=== PATIENT | female | born 1965 | race Caucasian/White ===

== ENCOUNTER 2017-12-31 08:15 | Outpatient (REF) | payer MEDICAID, SELFPAY ==
[2017-12-31 20:36] LABS: Prothrombin Time 19.5 sec (9.3-10.8)
[2017-12-31 21:01] LABS: Anion Gap 10.5 mmol/L (3-11); BUN 13 mg/dL (7-18); CO2 26.5 mmol/L (21.0-32.0); CREATININE 0.79 mg/dL (0.55-1.02); Chloride 106 mmol/L (98-107); Cholesterol 158 mg/dL (50-200); Glucose 130 mg/dL (70-100); HDL Cholesterol 50 mg/dL (40-60); LDL CHOLESTEROL 94 mg/dL (<100); Potassium 4.1 mmol/L (3.5-5.1); Sodium 143 mmol/L (136-145); Triglyceride 100 mg/dL (30-150)
== END 2017-12-31 08:35 ==
LOC: NCHCN 08:15
PROVIDERS: PCP Physician Assistant Medical; Visit Provider Specialist/Technologist Athletic Trainer
DX: E11.65 Type 2 diabetes mellitus with hyperglycemia (principal); J32.9 Chronic sinusitis, unspecified; R49.1 Aphonia; I63.9 Cerebral infarction, unspecified; Z79.01 Long term (current) use of anticoagulants
CPT/HCPCS: 80048; 80061; 83721; 85610

== ENCOUNTER 2018-04-17 18:31 | Emergency (ER) | payer MEDICAID, SELFPAY ==
[2018-04-17 18:35] VITALS: BP 169/70; PULSE 85; RESP 16; TEMP 36.2; O2SAT 98
--- NOTE | 2018-04-17 18:53 | W.ED.GENAD ---
Discharge Plan Disposition Patient Disposition: OTHER Condition: Stable Discharge Details Chief Complaint: RashLesion Clinical Impression: Left before treatment completed, Abdominal pain Primary Care Provider: Leandro Bah V ED Provider: Beulah Raman Home Meds and New Rx's Prescriptions: No Action atorvastatin [Lipitor] 20 MG tablet 20 mg PO HS RF: 0 gabapentin 300 MG capsule 300 mg PO HS Qty: 30 RF: 6 warfarin 2.5 MG tablet 5 mg PO DAILY RF: 0 sertraline 50 MG tablet 50 mg PO DAILY RF: 0 calcium carb-mag ox-zinc sulf 1 EACH tablet 400 mg PO DAILY RF: 0 lorazepam 0.5 MG tablet 1 tab PO PRN PRNRF: 0 metformin [Glucophage] 1,000 MG tablet 1,000 mg PO BID@0800,1700 RF: 0 Discharge Data Discharge Date/Time-TO BE ENTERED AT DEPARTURE: 04/17/18 23:36 Discharge Physician: Beulah Raman Medical Decision Making 52-year-old female with complaint of left-sided abdominal pain for the past week, worse tonight with a sensation of a hard lump. No fever, nausea, vomiting, diarrhea, urinary symptoms and has been eating and drinking normally. Blood pressure mildly hypertensive, otherwise vitals within normal limits. Patient's abdomen is soft and very minimally tender to deep palpation in the left mid abdomen. No abdominal wall defect, or bulge noted. No change in abdominal exam upon standing. Differential diagnosis includes hernia, bowel obstruction, diverticulitis. We will place an IV, bolus IV fluids, labs, urinalysis, CT abdomen and pelvis. 1940 --shortly after patient evaluation, it appears that she had eloped from the ED. It was explained to patient the plan and she was agreeable after my evaluation but it appears she may have left before any treatment. HPI General Mode of arrival: ambulatory. Date/Time Provider Initiated Documentation: 04/17/18 18:51. Limitations to Documentation: no limitations. Information obtained by: patient. HPI Narrative: Patient is a 52-year-old female with history of asthma, CVA, diabetes, seizure, on Coumadin her previous CVA and blood clotting disorder of which she does not know the name, for left-sided abdominal pain for the past week. Patient states the pain feels constantly tender, but was worse tonight when she noted a hardness to her left side of her abdomen. Patient states she felt it went from hard to move she . She states she awoke this when laying down and upon standing. Patient denies any significant pain at present, and states it just feels tender . Patient denies any fever, nausea, vomiting, diarrhea. She states she has been eating and drinking normally. She states her last bowel movement was this morning and she denies any rectal bleeding. Related Data Home Medications Medication Instructions Recorded Confirmed atorvastatin [Lipitor] 20 mg PO HS 10/18/13 04/17/18 gabapentin 300 mg PO HS #30 tab-cap 11/30/13 04/17/18 warfarin 5 mg PO DAILY tab-cap 01/25/14 04/17/18 lorazepam 1 tab PO PRN PRN 05/13/16 04/17/18 metformin [Glucophage] 1,000 mg PO BID@0800,1700 05/13/16 04/17/18 calcium carb-mag ox-zinc sulf 400 mg PO DAILY 09/09/16 04/17/18 sertraline 50 mg PO DAILY tab-cap 09/09/16 04/17/18 Allergies Allergy/AdvReac Type Severity Reaction Status Date / Time sulfamethoxazole Allergy Unknown Unverified 04/17/18 18:35 [From Bactrim] trimethoprim [From Bactrim] Allergy Unknown Unverified 04/17/18 18:35 carbamazepine [From Tegretol] Allergy Unverified 04/17/18 18:35 phenobarbital Allergy Unverified 04/17/18 18:35 phenytoin sodium Allergy Unverified 04/17/18 18:35 [From Dilantin] valproic acid Allergy Unverified 04/17/18 18:35 General Stated Complaint: RashLesion ROSALIND: 4 Review of Systems Review of Systems All systems reviewed & are unremarkable except as noted in HPI and below Constitutional Reports as per HPI, Denies chills and Denies fever(s) Eyes Denies blurry vision ENT Denies dizziness, Denies sore throat and Denies throat swelling Cardiovascular Denies chest pain and Denies dyspnea Respiratory Denies cough and Denies dyspnea Gastrointestinal Reports abdominal pain, Denies diarrhea and Denies vomiting Genitourinary Denies hematuria and Denies dysuria Musculoskeletal Denies back pain and Denies numbness Integumentary/Breasts Denies lesions and Denies rash Neurologic Denies dizziness, Denies focal weakness and Denies numbness Allergic/Immunologic Denies throat swelling [facility] Medical History Asthma (Chronic) CVA (cerebral vascular accident) (Chronic) Diabetes (Chronic) Seizure disorder (Chronic) Bronchitis Cerebrovascular accident (stroke) Personal history of malignant neoplasm Surgical History History of tonsillectomy (Chronic) Abdominal hysterectomy Appendectomy Ligation of fallopian tube Family History Mother No problems noted. Father Personal history of malignant neoplasm Other Asthma Social History Smoking/Tobacco Use Status: Current every day alcohol intake: never substance use type: does not use Exam Const General: cooperative, healthy appearing and no acute distress HENMT Head: normal to inspection Face and sinus: normal facial exam Eyes General: appearance normal, both eyes and all related structures EOM: EOM intact bilaterally Neck Neck: normal visual inspection and No submandibular swelling Lymphatic: no lymphadenopathy noted Chest Chest: normal inspection of the chest and no tenderness Resp Effort & Inspection: normal respiratory effort and able to speak in complete sentences Auscultation: clear to auscultation bilaterally Cardio Rate: regular rate Rhythm: regular rhythm GI Inspection: normal to inspection Palpation: soft, not firm, not rigid and tender (Very minimally tender to left mid abdomen.) Auscultation: normal bowel sounds Other: No abdominal wall defect, hernia or bulge noted, no change in abdomen upon standing. Skin General skin exam: no rashes or lesions noted Neuro General: alert, awake and oriented x3 Cognition: normal cognition Speech: speech normal Motor: muscle tone normal throughout Sensory Exam: no sensory deficits noted Extrem General: normal to inspection, full ROM and no edema Psych Appearance: grossly normal Mental Status: mental status grossly normal Speech and Movement: speech and movement normal Affect: normal affect Course Vital Signs Temperature 97.2 F L 04/17/18 18:35 Pulse 85 04/17/18 18:35 Respiratory Rate 16 04/17/18 18:35 Blood Pressure 169/70 H 04/17/18 18:35 Pulse Oximetry 98 04/17/18 18:35 Temperature 97.2 F L 04/17/18 18:35 Temperature Source Temporal Artery Scan 04/17/18 18:35 Pulse 85 04/17/18 18:35 Respiratory Rate 16 04/17/18 18:35 Respiratory Effort 04/17/18 18:35 Blood Pressure 169/70 H 04/17/18 18:35 Blood Pressure Position Sitting 04/17/18 18:35 Pulse Oximetry 98 04/17/18 18:35 Oxygen Delivery Method Room Air 04/17/18 18:35 Oxygen Flow Rate 0 04/17/18 18:35 Pain Level 5 04/17/18 18:35
--- NOTE | 2018-04-17 18:56 | ED.GENADUL_ITS ---
Discharge Plan Disposition Patient Disposition: OTHER Condition: Stable Discharge Details Chief Complaint: RashLesion Clinical Impression: Left before treatment completed, Abdominal pain Primary Care Provider: Leandro Bah V ED Provider: Beulah Raman Home Meds and New Rx's Prescriptions: No Action atorvastatin [Lipitor] 20 MG tablet 20 mg PO HS RF: 0 gabapentin 300 MG capsule 300 mg PO HS Qty: 30 RF: 6 warfarin 2.5 MG tablet 5 mg PO DAILY RF: 0 sertraline 50 MG tablet 50 mg PO DAILY RF: 0 calcium carb-mag ox-zinc sulf 1 EACH tablet 400 mg PO DAILY RF: 0 lorazepam 0.5 MG tablet 1 tab PO PRN PRNRF: 0 metformin [Glucophage] 1,000 MG tablet 1,000 mg PO BID@0800,1700 RF: 0 Discharge Data Discharge Date/Time-TO BE ENTERED AT DEPARTURE: 04/17/18 23:36 Discharge Physician: Beulah Raman Medical Decision Making 52-year-old female with complaint of left-sided abdominal pain for the past week, worse tonight with a sensation of a hard lump. No fever, nausea, vomiting, diarrhea, urinary symptoms and has been eating and drinking normally. Blood pressure mildly hypertensive, otherwise vitals within normal limits. Patient's abdomen is soft and very minimally tender to deep palpation in the left mid abdomen. No abdominal wall defect, or bulge noted. No change in abdominal exam upon standing. Differential diagnosis includes hernia, bowel obstruction, diverticulitis. We will place an IV, bolus IV fluids, labs, urinalysis, CT abdomen and pelvis. 1940 --shortly after patient evaluation, it appears that she had eloped from the ED. It was explained to patient the plan and she was agreeable after my evaluation but it appears she may have left before any treatment. HPI General Mode of arrival: ambulatory . Date/Time Provider Initiated Documentation: 04/17/18 18:51 . Limitations to Documentation: no limitations . Information obtained by: patient . HPI Narrative: Patient is a 52-year-old female with history of asthma, CVA, diabetes, seizure, on Coumadin her previous CVA and blood clotting disorder of which she does not know the name, for left- sided abdominal pain for the past week. Patient states the pain feels constantly tender, but was worse tonight when she noted a hardness to her left side of her abdomen. Patient states she felt it went from hard to move she . She states she awoke this when laying down and upon standing. Patient denies any significant pain at present, and states it just feels tender . Patient denies any fever, nausea, vomiting, diarrhea. She states she has been eating and drinking normally. She states her last bowel movement was this morning and she denies any rectal bleeding. Related Data Home Medications Medication Instructions Recorded Confirmed atorvastatin [Lipitor] 20 mg PO HS 10/18/13 04/17/18 gabapentin 300 mg PO HS #30 tab-cap 11/30/13 04/17/18 warfarin 5 mg PO DAILY tab-cap 01/25/14 04/17/18 lorazepam 1 tab PO PRN PRN 05/13/16 04/17/18 metformin [Glucophage] 1,000 mg PO BID@0800,1700 05/13/16 04/17/18 calcium carb-mag ox-zinc sulf 400 mg PO DAILY 09/09/16 04/17/18 sertraline 50 mg PO DAILY tab-cap 09/09/16 04/17/18 Allergies Allergy/AdvReac Type Severity Reaction Status Date / Time sulfamethoxazole Allergy Unknown Unverified 04/17/18 18:35 [From Bactrim] trimethoprim [From Bactrim] Allergy Unknown Unverified 04/17/18 18:35 carbamazepine [From Tegretol] Allergy Unverified 04/17/18 18:35 phenobarbital Allergy Unverified 04/17/18 18:35 phenytoin sodium Allergy Unverified 04/17/18 18:35 [From Dilantin] valproic acid Allergy Unverified 04/17/18 18:35 General Stated Complaint: RashLesion ROSALIND: 4 Review of Systems Review of Systems All systems reviewed & are unremarkable except as noted in HPI and below Constitutional Reports as per HPI, Denies chills and Denies fever(s) Eyes Denies blurry vision ENT Denies dizziness, Denies sore throat and Denies throat swelling Cardiovascular Denies chest pain and Denies dyspnea Respiratory Denies cough and Denies dyspnea Gastrointestinal Reports abdominal pain, Denies diarrhea and Denies vomiting Genitourinary Denies hematuria and Denies dysuria Musculoskeletal Denies back pain and Denies numbness Integumentary/Breasts Denies lesions and Denies rash Neurologic Denies dizziness, Denies focal weakness and Denies numbness Allergic/Immunologic Denies throat swelling [facility] Medical History Asthma (Chronic) CVA (cerebral vascular accident) (Chronic) Diabetes (Chronic) Seizure disorder (Chronic) Bronchitis Cerebrovascular accident (stroke) Personal history of malignant neoplasm Surgical History History of tonsillectomy (Chronic) Abdominal hysterectomy Appendectomy Ligation of fallopian tube Family History Mother No problems noted. Father Personal history of malignant neoplasm Other Asthma Social History Smoking/Tobacco Use Status: Current every day alcohol intake: never substance use type: does not use Exam Const General: cooperative, healthy appearing and no acute distress HENMT Head: normal to inspection Face and sinus: normal facial exam Eyes General: appearance normal, both eyes and all related structures EOM: EOM intact bilaterally Neck Neck: normal visual inspection and No submandibular swelling Lymphatic: no lymphadenopathy noted Chest Chest: normal inspection of the chest and no tenderness Resp Effort & Inspection: normal respiratory effort and able to speak in complete sentences Auscultation: clear to auscultation bilaterally Cardio Rate: regular rate Rhythm: regular rhythm GI Inspection: normal to inspection Palpation: soft, not firm, not rigid and tender (Very minimally tender to left m id abdomen.) Auscultation: normal bowel sounds Other: No abdominal wall defect, hernia or bulge noted, no change in abdomen upon standing. Skin General skin exam: no rashes or lesions noted Neuro General: alert, awake and oriented x3 Cognition: normal cognition Speech: speech normal Motor: muscle tone normal throughout Sensory Exam: no sensory deficits noted Extrem General: normal to inspection, full ROM and no edema Psych Appearance: grossly normal Mental Status: mental status grossly normal Speech and Movement: speech and movement normal Affect: normal affect Course Vital Signs Temperature 97.2 F L 04/17/18 18:35 Pulse 85 04/17/18 18:35 Respiratory Rate 16 04/17/18 18:35 Blood Pressure 169/70 H 04/17/18 18:35 Pulse Oximetry 98 04/17/18 18:35 Temperature 97.2 F L 04/17/18 18:35 Temperature Source Temporal Artery Scan 04/17/18 18:35 Pulse 85 04/17/18 18:35 Respiratory Rate 16 04/17/18 18:35 Respiratory Effort 04/17/18 18:35 Blood Pressure 169/70 H 04/17/18 18:35 Blood Pressure Position Sitting 04/17/18 18:35 Pulse Oximetry 98 04/17/18 18:35 Oxygen Delivery Method Room Air 04/17/18 18:35 Oxygen Flow Rate 0 04/17/18 18:35 Pain Level 5 04/17/18 18:35
== END 2018-04-17 23:36 | disposition other institution (70) ==
LOC: ER 18:59
PROVIDERS: Emergency Provider Physician Assistant; PCP Physician Assistant Medical
DX: R10.9 Unspecified abdominal pain (principal); I10 Essential (primary) hypertension; Z53.29 Procedure and treatment not carried out because of patient's decision for other reasons
CPT/HCPCS: 80053; 99282; 85025; 85610; 85730

== ENCOUNTER 2018-06-15 01:02 | Outpatient (CLI) | payer MEDICAID, SELFPAY ==
--- NOTE | 2018-06-15 08:05 | DI.MAMMO_ITS ---
SYMPTOM/DIAGNOSIS: SCREENING, [facility], Z00.00 MAMMOGRAMS: Mammograms were interpreted according to the usual protocol including computer analysis with CAD system, tomosynthesis and C view imaging. The breast tissue is of moderate radiodensity. There is no evidence of a mass. There are no suspicious calcifications and there has been no significant interval change when compared with prior images. IMPRESSION: No evidence of malignancy, category 1. Yearly screening mammography is recommended. Breast density, Category B. SA ASSESSMENT OF FINDINGS: Negative. Category 1. Patient will receive a letter notifying them of these results. BI-RADS category B. There are scattered areas of fibroglandular density.
== END 2018-06-15 01:22 ==
PROVIDERS: PCP Physician Assistant Medical; Visit Provider Specialist/Technologist Athletic Trainer
DX: Z12.31 Encounter for screening mammogram for malignant neoplasm of breast (principal)
CPT/HCPCS: 77063; 77067

== ENCOUNTER 2018-08-29 11:06 | Emergency (ER) | payer MEDICAID, SELFPAY ==
--- NOTE | 2018-08-29 11:15 | W.ED.GENAD ---
Discharge Plan Disposition Patient Disposition: HOME Condition: Improving Discharge Details Chief Complaint: GenMedical Clinical Impression: Closed fracture dislocation of finger Primary Care Provider: Skyler Barry ED Provider: Maricruz Posada Home Meds and New Rx's Prescriptions: Continued atorvastatin [Lipitor] 20 MG tablet 20 mg PO HS RF: 0 gabapentin 300 MG capsule 300 mg PO HS Qty: 30 RF: 6 warfarin 2.5 MG tablet 5 mg PO DAILY RF: 0 sertraline 50 MG tablet 50 mg PO DAILY RF: 0 calcium carb-mag ox-zinc sulf 1 EACH tablet 400 mg PO DAILY RF: 0 lorazepam 0.5 MG tablet 1 tab PO PRN PRNRF: 0 metformin [Glucophage] 1,000 MG tablet 1,000 mg PO BID@0800,1700 RF: 0 Discharge Instructions Instructions: Finger Fracture (ED), Finger Dislocation (ED) Additional Instructions: Encourage rest, ice, elevation. Tylenol as needed for discomfort. Please continue splint until reevaluated orthopedics. Please call them Thursday to schedule follow-up appointment. If you develop altered sensation, increased pain or other new/worsening symptoms please seek care urgently once again. Referrals: Skyler Barry [Primary Care Provider] - Foster Rodríguez MD [ [facility] STAFF PHYSICIAN] - Discharge Data Discharge Date/Time-TO BE ENTERED AT DEPARTURE: 08/29/18 13:02 Medical Decision Making Patient is a 52 year old RHD female, brought in by significant other, with c/c of injury to right 5th digit. Unclear how she did this but states she was picking up a tool. Did not fall, no known trauma. Appears to have suffered a dislocation at the PIP joint. Patient is having severe pain, has not taken anything for this. No other injury, no previous injury to this finger. No opening in the skin. Neurovascularly intact. Offered digital block which patient has refused. XR reviewed by myself. Significant for dislocation of the PIP joint with associated fracture. Fracture appears to be avulsion fracture with small fragment displaced away from the joint line. XR reviewed by radiologist, no note of fracture, otherwise as above. Patient has discussed risk/benefits as well as expected procedural steps of reduction at length. She declines any analgesics, digital block. Prefers to move forward with the procedure. Finger was easily reduced with counter traction. Patient is unable to flex at the PIP or DIP joints. With passive range of motion, joint moves fluidly. Splint was immediately applied and postreduction films obtained Postreduction films show displaced fracture is noted initially. This is concerning for avulsion of the flexor tendon. The finger continues to appear hyperextended. Consulted with Dr. Rodríguez with orthopedics who advised placing the patient in a dorsal splint that will keep the MCP, PIP and DIP joints and 30 degrees of flexion. This is applied. She will follow-up with orthopedics this week for reevaluation. Patient I discussed activity she should avoid. She will keep splint on until reevaluated by orthopedics. Foam and metal splint as described by Dr. Rodríguez was applied by myself. Encouraged rest, ice, elevation. All of her questions and concerns were addressed and she is in agreement this plan. HPI General Mode of arrival: ambulatory. Date/Time Provider Initiated Documentation: 08/29/18 11:09. Limitations to Documentation: no limitations. Information obtained by: patient, family and RN notes reviewed. History of Present Illness 52 year old F presents to the emergency department with the chief complaint of right 5th digit injury, described as severe, Quality is described as aching, and is localized to the right and upper extremity. Patient reports no radiation. Patient started experiencing this minute(s) and it has been constant. No relieving factors improve symptom(s), Movement worsens symptoms . Patient notes no other symptoms.. Patient did receive the following treatments prior to arrival, none Related Data Home Medications Medication Instructions Recorded Confirmed atorvastatin [Lipitor] 20 mg PO HS 10/18/13 04/17/18 gabapentin 300 mg PO HS #30 tab-cap 11/30/13 04/17/18 warfarin 5 mg PO DAILY tab-cap 01/25/14 04/17/18 lorazepam 1 tab PO PRN PRN 05/13/16 04/17/18 metformin [Glucophage] 1,000 mg PO BID@0800,1700 05/13/16 04/17/18 calcium carb-mag ox-zinc sulf 400 mg PO DAILY 09/09/16 04/17/18 sertraline 50 mg PO DAILY tab-cap 09/09/16 04/17/18 Allergies Allergy/AdvReac Type Severity Reaction Status Date / Time sulfamethoxazole Allergy Unknown Unverified 08/29/18 11:22 [From Bactrim] trimethoprim [From Bactrim] Allergy Unknown Unverified 08/29/18 11:22 carbamazepine [From Tegretol] Allergy Unverified 08/29/18 11:22 phenobarbital Allergy Unverified 08/29/18 11:22 phenytoin sodium Allergy Unverified 08/29/18 11:22 [From Dilantin] valproic acid Allergy Unverified 08/29/18 11:22 General ROSALIND: 4 Review of Systems Constitutional Reports as per HPI, Denies chills, Denies fever(s), Denies headache(s) and Denies weakness ENT Denies headache(s) Cardiovascular Reports as per HPI Respiratory Reports as per HPI and Denies cough Musculoskeletal Reports as per HPI and Denies tingling Integumentary/Breasts Reports as per HPI, Denies rash and Denies wounds Neurologic Reports as per HPI, Denies headache(s), Denies tingling, Denies paresthesias and Denies weakness PFS Medical History Asthma (Chronic) CVA (cerebral vascular accident) (Chronic) Diabetes (Chronic) Seizure disorder (Chronic) Bronchitis Cerebrovascular accident (stroke) Personal history of malignant neoplasm Surgical History History of tonsillectomy (Chronic) Abdominal hysterectomy Appendectomy Ligation of fallopian tube Social History Smoking/Tobacco Use Status: Current every day Alcohol Intake: never Drug use: Never Substance use type: does not use Do you feel safe in your relationship?: Yes Exam Const General: cooperative, healthy appearing, comfortable, no acute distress, well developed and well groomed Nutritional Appearance: average body habitus and well nourished Orientation: alert and awake Resp Effort & Inspection: normal respiratory effort, able to speak in complete sentences and no respiratory distress Cardio Rate: regular rate Rhythm: regular rhythm Skin Trauma: abrasion (abrasion anterior right wrist, appears old) Neuro General: alert and awake Cognition: normal cognition Speech: speech normal Gait: normal gait Motor: muscle tone normal throughout Sensory Exam: no sensory deficits noted Extrem Right upper extremity: normal capillary refill, no joint enlargement, wrist (abrasion to anterior wrist, appears old, healing well) Details: normal ROM; no tenderness, no swelling and no unusual warmth and hand Details: abnormal to inspection Details: a deformity Location: of the 5th digit (notable dislocation to PIP joint), normal capillary refill, neuromotor exam normal (unable to move 5th digit, likely associated with dislocation) and neurosensory exam normal; abnormal to inspection and ROM limited Psych Appearance: grossly normal and well kempt Mental Status: mental status grossly normal Speech and Movement: speech and movement normal Procedures Orthopedic Joint Reduction Joint #1: Time Out Performed: Yes Side: right Joint Reduction Location: finger Analgesia: none Technique used: traction/counter-traction Post-reduction neuro exam: intact Post-reduction vascular: intact Post Reduction X-Ray Obtained: Yes Post Reduction X-Ray Results: reduced Splint Applied: Yes Patient Tolerated Procedure: well and no complications
[2018-08-29 11:18] VITALS: BP 155/78; PULSE 86; RESP 14; TEMP 36.4; O2SAT 97
--- NOTE | 2018-08-29 11:18 | DI.RAD_ITS ---
SYMPTOM/DIAGNOSIS: DISLOCATED RIGHT 5TH DIGIT RIGHT HAND: There is dislocation at the proximal interphalangeal joint of the 5th finger posteriorly. There is a question of a tiny fracture at the volar base of the middle phalanx. No additional abnormalities are seen. IMPRESSION: Posterior dislocation of the proximal interphalangeal joint.
--- NOTE | 2018-08-29 11:30 | ED.GENADUL_ITS ---
Discharge Plan Disposition Patient Disposition: HOME Condition: Improving Discharge Details Chief Complaint: GenMedical Clinical Impression: Closed fracture dislocation of finger Primary Care Provider: Skyler Barry ED Provider: Maricruz Posada Home Meds and New Rx's Prescriptions: Continued atorvastatin [Lipitor] 20 MG tablet 20 mg PO HS RF: 0 gabapentin 300 MG capsule 300 mg PO HS Qty: 30 RF: 6 warfarin 2.5 MG tablet 5 mg PO DAILY RF: 0 sertraline 50 MG tablet 50 mg PO DAILY RF: 0 calcium carb-mag ox-zinc sulf 1 EACH tablet 400 mg PO DAILY RF: 0 lorazepam 0.5 MG tablet 1 tab PO PRN PRNRF: 0 metformin [Glucophage] 1,000 MG tablet 1,000 mg PO BID@0800,1700 RF: 0 Discharge Instructions Instructions: Finger Fracture (ED), Finger Dislocation (ED) Additional Instructions: Encourage rest, ice, elevation. Tylenol as needed for discomfort. Please continue splint until reevaluated orthopedics. Please call them Thursday to schedule follow-up appointment. If you develop altered sensation, increased pain or other new/worsening symptoms please seek care urgently once again. Referrals: Skyler Barry [Primary Care Provider] - Foster Rodríguez MD [ [facility] STAFF PHYSICIAN] - Discharge Data Discharge Date/Time-TO BE ENTERED AT DEPARTURE: 08/29/18 13:02 Medical Decision Making Patient is a 52 year old RHD female, brought in by significant other, with c/c of injury to right 5th digit. Unclear how she did this but states she was picking up a tool. Did not fall, no known trauma. Appears to have suffered a dislocation at the PIP joint. Patient is having severe pain, has not taken anything for this. No other injury, no previous injury to this finger. No opening in the skin. Neurovascularly intact. Offered digital block which patient has refused. XR reviewed by myself. Significant for dislocation of the PIP joint with as sociated fracture. Fracture appears to be avulsion fracture with small fragment displaced away from the joint line. XR reviewed by radiologist, no note of fracture, otherwise as above. Patient has discussed risk/benefits as well as expected procedural steps of reduction at length. She declines any analgesics, digital block. Prefers to move forward with the procedure. Finger was easily reduced with counter traction. Patient is unable to flex at the PIP or DIP joints. With passive range of motion, joint moves fluidly. Splint was immediately applied and postreduction films obtained Postreduction films show displaced fracture is noted initially. This is concerning for avulsion of the flexor tendon. The finger continues to appear hyperextended. Consulted with Dr. Rodríguez with orthopedics who advised placing the patient in a dorsal splint that will keep the MCP, PIP and DIP joints and 30 degrees of flexion. This is applied. She will follow-up with orthopedics this week for reevaluation. Patient I discussed activity she should avoid. She will keep splint on until reevaluated by orthopedics. Foam and metal splint as described by Dr. Rodríguez was applied by myself. Encouraged rest, ice, elevation. All of her questions and concerns were addressed and she is in agreement this plan. HPI General Mode of arrival: ambulatory . Date/Time Provider Initiated Documentation: 08/29/18 11:09 . Limitations to Documentation: no limitations . Information obtained by: patient, family and RN notes reviewed . History of Present Illness 52 year old F presents to the emergency department with the chief complaint of right 5th digit injury, described as severe, Quality is described as aching, and is localized to the right and upper extremity. Patient reports no radiation. Patient started experiencing this minute(s) and it has been constant. No relieving factors improve symptom(s), Movement worsens symptoms . Patient notes no other symptoms.. Patient did receive the following treatments prior to arrival, none Related Data Home Medications Medication Instructions Recorded Confirmed atorvastatin [Lipitor] 20 mg PO HS 10/18/13 04/17/18 gabapentin 300 mg PO HS #30 tab-cap 11/30/13 04/17/18 warfarin 5 mg PO DAILY tab-cap 01/25/14 04/17/18 lorazepam 1 tab PO PRN PRN 05/13/16 04/17/18 metformin [Glucophage] 1,000 mg PO BID@0800,1700 05/13/16 04/17/18 calcium carb-mag ox-zinc sulf 400 mg PO DAILY 09/09/16 04/17/18 sertraline 50 mg PO DAILY tab-cap 09/09/16 04/17/18 Allergies Allergy/AdvReac Type Severity Reaction Status Date / Time sulfamethoxazole Allergy Unknown Unverified 08/29/18 11:22 [From Bactrim] trimethoprim [From Bactrim] Allergy Unknown Unverified 08/29/18 11:22 carbamazepine [From Tegretol] Allergy Unverified 08/29/18 11:22 phenobarbital Allergy Unverified 08/29/18 11:22 phenytoin sodium Allergy Unverified 08/29/18 11:22 [From Dilantin] valproic acid Allergy Unverified 08/29/18 11:22 General ROSALIND: 4 Review of Systems Constitutional Reports as per HPI, Denies chills, Denies fever(s), Denies headache(s) and Denies weakness ENT Denies headache(s) Cardiovascular Reports as per HPI Respiratory Reports as per HPI and Denies cough Musculoskeletal Reports as per HPI and Denies tingling Integumentary/Breasts Reports as per HPI, Denies rash and Denies wounds Neurologic Reports as per HPI, Denies headache(s), Denies tingling, Denies paresthesias and Denies weakness PFS Medical History Asthma (Chronic) CVA (cerebral vascular accident) (Chronic) Diabetes (Chronic) Seizure disorder (Chronic) Bronchitis Cerebrovascular accident (stroke) Personal history of malignant neoplasm Surgical History History of tonsillectomy (Chronic) Abdominal hysterectomy Appendectomy Ligation of fallopian tube Social History Smoking/Tobacco Use Status: Current every day Alcohol Intake: never Drug use: Never Substance use type: does not use Do you feel safe in your relationship?: Yes Exam Const General: cooperative, healthy appearing, comfortable, no acute distress, well developed and well groomed Nutritional Appearance: average body habitus and well nourished Orientation: alert and awake Resp Effort & Inspection: normal respiratory effort, able to speak in complete sentences and no respiratory distress Cardio Rate: regular rate Rhythm: regular rhythm Skin Trauma: abrasion (abrasion anterior right wrist, appears old) Neuro General: alert and awake Cognition: normal cognition Speech: speech normal Gait: normal gait Motor: muscle tone normal throughout Sensory Exam: no sensory deficits noted Extrem Right upper extremity: normal capillary refill, no joint enlargement, wrist (abrasion to anterior wrist, appears old, healing well) Details: normal ROM; no tenderness, no swelling and no unusual warmth and hand Details: abnormal to inspection Details: a deformity Location: of the 5th digit (notable dislocation to PIP joint), normal capillary refill, neuromotor exam normal (unable to move 5th digit, likely associated with dislocation) and neurosensory exam normal; abnormal to inspection and ROM limited Psych Appearance: grossly normal and well kempt Mental Status: mental status grossly normal Speech and Movement: speech and movement normal Procedures Orthopedic Joint Reduction Joint #1: Time Out Performed: Yes Side: right Joint Reduction Location: finger Analgesia: none Technique used: traction/counter-traction Post-reduction neuro exam: intact Post-reduction vascular: intact Post Reduction X-Ray Obtained: Yes Post Reduction X-Ray Results: reduced Splint Applied: Yes Patient Tolerated Procedure: well and no complications
--- NOTE | 2018-08-29 11:52 | DI.RAD_ITS ---
SYMPTOM/DIAGNOSIS: POST REDUCTION RIGHT LITTLE FINGER: A splint has been placed. The previously noted posterior dislocation has been reduced. There are a few tiny fracture fragments seen adjacent to the head of the proximal phalanx which originated from the volar base of the middle phalanx. IMPRESSION: Satisfactory reduction of dislocation. Avulsion fracture at the volar base of the middle phalanx.
--- NOTE | 2018-08-29 12:20 | DI.VRAD_ITS ---
Addendum created by Chencho Heaton MD on 08/29/2018 12:20:41 PM EDT Impression: Complete dorsal dislocation of the little finger middle phalanx with respect to the proximal phalanx with some overriding of the bones. Little finger PIP dislocation. Initial report created on 08/29/2018 12:20:06 PM EDT EXAM: XR Right Hand EXAM DATE/TIME: 08/29/2018 11:18 AM CLINICAL HISTORY: 52 years old, female; Signs and symptoms; Other: Dislocated right 5th digit TECHNIQUE: Imaging protocol: XR Right hand. Views: 3 or more views. COMPARISON: No relevant prior studies available. FINDINGS: Bones/joints: Complete dorsal dislocation of the little finger middle phalanx with respect to the proximal phalanx with some overriding of the bones. (Little finger PIP dislocation). Soft tissues: Normal. IMPRESSION: Dictated and Authenticated by: Chencho Heaton MD. Ordering:BAKARI Alcantara MD
--- NOTE | 2018-08-29 12:25 | DI.VRAD_ITS ---
Addendum created by Chencho Heaton MD on 08/29/2018 4:21:44 PM EDT Exam: Right little finger. Technique: 3 views right little finger. Initial report created on 08/29/2018 12:25:25 PM EDT EXAM: XR Left Finger(s) EXAM DATE/TIME: 08/29/2018 11:53 AM CLINICAL HISTORY: 52 years old, female; Signs and symptoms; Other: Postreduction TECHNIQUE: Imaging protocol: XR Left fingers. Views: Minimum 2 views. COMPARISON: 3 view right hand dated August 29, 2018. FINDINGS: Bones/joints: Interval reduction of PIP dislocation with splint material in place. Displaced intra-articular avulsion fractures arising from the volar aspect of the base of the little finger middle phalanx. The avulsion fracture was present on the comparison films. Soft tissues: Normal. IMPRESSION: 1. Interval reduction of PIP dislocation with splint material in place. 2. Displaced intra-articular avulsion fractures arising from the volar aspect of the base of the little finger middle phalanx. The avulsion fracture was present on the comparison films. Dictated and Authenticated by: Chencho Heaton MD. Ordering:BAKARI Alcantara MD
[2018-08-29 13:02] VITALS: BP 155/78; PULSE 86; RESP 14; TEMP 36.4; O2SAT 97
== END 2018-08-29 13:02 | disposition home or self-care (01) ==
PROVIDERS: Emergency Provider Physician Assistant; PCP Specialist/Technologist Athletic Trainer
DX: S63.286A Dislocation of proximal interphalangeal joint of right little finger, initial encounter (principal); S62.626A Displaced fracture of middle phalanx of right little finger, initial encounter for closed fracture; X58.XXXA Exposure to other specified factors, initial encounter
CPT/HCPCS: 26720; 26770; 73130; 73140

== ENCOUNTER 2018-10-18 14:20 | Outpatient (CLI) | payer MEDICAID, SELFPAY ==
--- NOTE | 2018-10-18 13:15 | DI.RAD_ITS ---
SYMPTOM/DIAGNOSIS: CONTINUED PAIN RIGHT LITTLE FINGER: Comparison is made with 08/29/18. A small fracture fragment is seen at the volar aspect of the middle phalanx.
== END 2018-10-18 14:40 ==
PROVIDERS: PCP Specialist/Technologist Athletic Trainer; Visit Provider Student in an Organized Health Care Education/Training Program
DX: S63.286D Dislocation of proximal interphalangeal joint of right little finger, subsequent encounter (principal)
CPT/HCPCS: 73140

== ENCOUNTER 2019-02-16 09:08 | Outpatient (REF) | payer MEDICAID, SELFPAY ==
[2019-02-16 21:22] LABS: Calculated LDL 100 mg/dL; Cholesterol 187 mg/dL (<200); HDL Cholesterol 51 mg/dL (40-60); Triglyceride 183 mg/dL (<150)
[2019-02-16 21:32] LABS: ALT 41 U/L (14-59); AST 22 U/L (15-37); Albumin 3.7 g/dL (3.4-5.0); Alkaline Phosphatase 133 U/L (46-116); Anion Gap 11.2 mmol/L (3-11); BUN 16 mg/dL (7-18); Bilirubin, Total 0.4 mg/dL (0.2-1.0); CO2 25.8 mmol/L (21.0-32.0); CREATININE 0.68 mg/dL (0.55-1.02); Chloride 107 mmol/L (98-107); Glucose 118 mg/dL (74-106); Magnesium 1.9 mg/dL (1.8-2.4); Potassium 4.3 mmol/L (3.5-5.1); Sodium 144 mmol/L (136-145); Total Protein 6.6 g/dL (6.4-8.2)
== END 2019-02-16 09:28 ==
LOC: NCHCN 09:08
PROVIDERS: PCP Specialist/Technologist Athletic Trainer; Visit Provider Specialist/Technologist Athletic Trainer
DX: R05 Cough (principal); E11.9 Type 2 diabetes mellitus without complications; E78.5 Hyperlipidemia, unspecified; I10 Essential (primary) hypertension
CPT/HCPCS: 80053; 80061; 83735

== ENCOUNTER 2019-09-19 15:06 | Outpatient (CLI) | payer MEDICAID, SELFPAY ==
[2019-09-24 20:14] LABS: SARS-CoV-2 RNA Undetected (Undetected)
== END 2019-09-19 15:26 ==
LOC: LBO 09-20 15:08 → NCHCN 09-20 15:17
PROVIDERS: PCP Specialist/Technologist Athletic Trainer; Visit Provider Nurse Practitioner Family
DX: Z20.828 Contact with and (suspected) exposure to other viral communicable diseases (principal)
CPT/HCPCS: U0003

== ENCOUNTER 2020-06-09 06:16 | Emergency (ER) | payer MEDICAID, SELFPAY ==
--- NOTE | 2020-06-09 06:15 | DI.RAD_ITS ---
EXAM: XR FOOT LT COMPLETE CLINICAL HISTORY: trauma. TECHNIQUE: 2D digital imaging was performed. COMPARISON: No exams were available for comparison FINDINGS: There is no evidence of fracture or diastasis of the Lisfranc joint. No radiopaque foreign body seen . No osseous lesions. Calcification is seen posteriorly at the insertion site of the Achilles on th e posterior calcaneus. IMPRESSION: No acute fracture seen DATA REPOSITORY: RADIATION DOSE DELIVERED:
--- NOTE | 2020-06-09 06:18 | ED.GENADUL_ITS ---
Discharge Plan Disposition Patient Disposition: HOME Condition: Good Discharge Details Clinical Impression: Injury of toe on left foot Primary Care Provider: Kelsie Mckay ED Provider: Alexander Raymundo Home Meds and New Rx's Prescriptions: Continued atorvastatin [Lipitor] 20 MG tablet 20 mg PO HS RF: 0 gabapentin 300 MG capsule 300 mg PO HS Qty: 30 RF: 6 warfarin 2.5 MG tablet 5 mg PO DAILY RF: 0 sertraline 50 MG tablet 50 mg PO DAILY RF: 0 calcium carb-mag ox-zinc sulf 1 EACH tablet 400 mg PO DAILY RF: 0 lorazepam 0.5 MG tablet 1 tab PO PRN PRNRF: 0 metformin [Glucophage] 1,000 MG tablet 1,000 mg PO BID@0800,1700 RF: 0 Levemir FlexTouch U-100 Insuln 100 unit/mL (3 mL) insulin pen 8 unit SUBCUT HS RF: 0 Flovent HFA 110 mcg/actuation HFA aerosol inhaler INHALATION RF: 0 losartan 50 mg tablet 50 mg PO DAILY RF: 0 atorvastatin 20 mg tablet 20 mg PO DAILY RF: 0 Discharge Instructions Additional Instructions: No fracture identified on x-ray per my review. You may shania tape your toes together if it is more comfortable. Use Tylenol if needed. Ice and elevate on and off over the weekend. Bruising is likely related to continued walking/use of foot while still injured. It should resolve over the next week or 2. Follow-up with primary care as needed. Return if problems. Referrals: Kelsie Mckay [Primary Care Provider] - Medical Decision Making Most likely phalanges fracture but complains of pain at the base of toe so will obtain foot x-ray to rule out metatarsal fracture. Per my review of x-ray no definitive fracture noted. AP view questionable phalanx fracture of the little toe but on oblique it appears completely normal. In any event there was no metatarsal fracture. Patient instructed on shania taping if she wishes. Tylenol if needed for discomfort. Bruising likely related to continue walking on the injured toe. Should heal up on its own with no issues. HPI General Mode of arrival: ambulatory . Date/Time Provider Initiated Documentation: 06/09/20 06:17 . Limitations to Documentation: no limitations . Information obtained by: patient and RN notes reviewed . HPI Narrative: Patient presents to ED with left foot pain. Patient stubbed her pinky toe a few days ago. It has been painful since. However, she has noticed the bruising seems to be spreading. Pain is not really changed. She is on Coumadin for previous stroke. She has no other complaints. Related Data Home Medications Medication Instructions Recorded Confirmed atorvastatin [Lipitor] 20 mg PO HS 10/18/13 06/09/20 gabapentin 300 mg PO HS #30 tab-cap 11/30/13 06/09/20 warfarin 5 mg PO DAILY tab-cap 01/25/14 06/09/20 lorazepam 1 tab PO PRN PRN 05/13/16 06/09/20 metformin [Glucophage] 1,000 mg PO BID@0800,1700 05/13/16 06/09/20 calcium carb-mag ox-zinc sulf 400 mg PO DAILY 09/09/16 06/09/20 sertraline 50 mg PO DAILY tab-cap 09/09/16 06/09/20 Flovent HFA INHALATION 06/09/20 Levemir FlexTouch U-100 Insuln 8 unit SUBCUT HS 06/09/20 06/09/20 atorvastatin 20 mg PO DAILY 06/09/20 06/09/20 losartan 50 mg PO DAILY 06/09/20 06/09/20 Allergies Allergy/AdvReac Type Severity Reaction Status Date / Time sulfamethoxazole Allergy Unknown Unverified 06/09/20 06:22 [From Bactrim] trimethoprim [From Bactrim] Allergy Unknown Unverified 06/09/20 06:22 carbamazepine [From Tegretol] Allergy Unverified 06/09/20 06:22 phenobarbital Allergy Unverified 06/09/20 06:22 phenytoin sodium Allergy Unverified 06/09/20 06:22 [From Dilantin] valproic acid Allergy Unverified 06/09/20 06:22 General ROSALIND: 4 Review of Systems Constitutional Constitutional: Denies fever(s) Cardiovascular Cardiovascular: Denies chest pain and Denies dyspnea Respiratory Respiratory: Denies cough and Denies dyspnea Musculoskeletal Musculoskeletal: Reports abnormal gait and Denies numbness Neurologic Neurologic: Reports abnormal gait and Denies numbness PFSH Medical History Asthma Cerebrovascular accident (stroke) Diabetes Personal history of malignant neoplasm cervical CA Seizure disorder Surgical History Abdominal hysterectomy Appendectomy History of tonsillectomy Ligation of fallopian tube Family History Mother No problems noted. Father Personal history of malignant neoplasm Other Asthma Social History Smoking/Tobacco Use Status: Current every day Smoking risk assessment performed?: Yes Alcohol Intake: never Drug use: Never Substance use type: does not use Do you feel safe in your relationship?: Yes Exam Narrative Exam Narrative: Const: WDWN female in NAD. HEENT: NC/AT. Normal facial exam. Eyes: Normal conjunctiva and sclera. Neck: Supple. Trachea midline. Lungs: Normal respiratory effort. Neuro: A+O x 3. Normal speech, mentation. Cranial nerves II - XII grossly intact. No gross motor or sensory deficit. Ext: No C/C/E. Left foot with swollen pinky toe. Bruising involving lateral dorsal aspect of the foot as well as the base of the second third and fourth toe. Neurovascularly intact.
[2020-06-09 06:19] VITALS: BP 164/73; PULSE 112; RESP 16; TEMP 36.4; O2SAT 96
--- NOTE | 2020-06-09 07:07 | DI.VRAD_ITS ---
PROCEDURE INFORMATION: Exam: XR Left Foot Exam date and time: 06/09/2020 6:38 AM Age: 54 years old Clinical indication: Pain; Patient HX: Trauma injured Thursday while making bed TECHNIQUE: Imaging protocol: XR Left foot. Views: 3 or more views. COMPARISON: US LEFT EXTREMITY ULTRASOUND ([id number]) 11/25/2013 3:28 PM FINDINGS: Bones/joints: Bone mineralization is age-appropriate. There is no evidence of fracture. No evidence of dislocation. Noninflamed enthesophyte seen within the region of the Achilles tendon. The joint spaces are adequately preserved; no significant degenerative narrowing and no bony erosion seen. Soft tissues: No radiopaque foreign body present. There is no significant soft tissue swelling present. IMPRESSION: No acute osseous abnormality. Dictated and Authenticated by: Parish Eastman MD. Ordering:ROSALEE Munoz MD
== END 2020-06-09 07:18 | disposition home or self-care (01) ==
PROVIDERS: Emergency Provider Emergency Medicine; PCP Family Medicine
DX: S90.122A Contusion of left lesser toe(s) without damage to nail, initial encounter (principal); W22.09XA Striking against other stationary object, initial encounter; Z79.01 Long term (current) use of anticoagulants
CPT/HCPCS: 99283; 73630

== ENCOUNTER 2020-09-24 08:40 | Outpatient (REF) | payer MEDICAID, SELFPAY ==
[2020-09-24 15:01] LABS: ALT 33 U/L (14-59); AST 17 U/L (15-37); Albumin 3.5 g/dL (3.4-5.0); Alkaline Phosphatase 129 U/L (46-116); Anion Gap 12.5 mmol/L (3-11); BUN 12 mg/dL (7-18); Bilirubin, Total 0.5 mg/dL (0.2-1.0); CO2 27.5 mmol/L (21.0-32.0); CREATININE 0.8 mg/dL (0.55-1.02); Calcium 8.8 mg/dL (8.5-10.1); Calculated LDL 82 mg/dL (<100); Chloride 106 mmol/L (98-107); Cholesterol 157 mg/dL (<200); Glucose 132 mg/dL (74-106); HDL Cholesterol 53 mg/dL (40-60); Sodium 146 mmol/L (136-145); Total Protein 6.2 g/dL (6.4-8.2); Triglyceride 113 mg/dL (<150)
[2020-09-24 15:16] LABS: HCT 44.8 % (36.0-46.0); HGB 14.6 g/dL (11.2-15.7); MCH 28.6 pg (27.0-33.0); MCHC 32.6 % (32.0-36.0); MCV 87.8 fL (80-95); Platelet Count 319 10^3/uL (130-400); RDW 15.1 % (11.7-14.6); WBC 9.14 10^3/uL (4.4-10.8)
[2020-09-24 15:32] LABS: Hemoglobin A1C 7.1 % (<5.7)
== END 2020-09-24 08:41 | disposition home or self-care (01) ==
LOC: NCHCN 08:40
PROVIDERS: PCP Family Medicine; Visit Provider Family Medicine
DX: Z00.00 Encounter for general adult medical examination without abnormal findings (principal); E11.9 Type 2 diabetes mellitus without complications; E78.5 Hyperlipidemia, unspecified; I10 Essential (primary) hypertension; D68.9 Coagulation defect, unspecified
CPT/HCPCS: 80053; 80061; 85027; 83036

== ENCOUNTER 2021-01-09 02:16 | Outpatient (CLI) | payer MEDICAID, SELFPAY ==
--- NOTE | 2021-01-09 07:30 | DI.CT_ITS ---
Exam(s) CT CHEST WO EXAM: CT CHEST WO CLINICAL HISTORY: 6 month f/u scan, new RLL nodule,r91.1. TECHNIQUE: Multi planar reconstructions were performed. CONTRAST MATERIAL: None COMPARISON: CT CT CHEST LOW DOSE FOLLOW UP from 06/19/[address] CHEST LOW DOSE FOLLOW UP from 06/19/2020 FINDINGS: CHEST: LUNGS: Emphysematous changes again noted in both lung naik. The previously present 4 millimeter nodule in the right upper lobe is unchanged. Inferolateral to t his is another small peripheral nodular infiltrate which is also unchanged. There are mild benign-ap pearing subpleural increased markings in the posterior basal segment of the right lower lobe, slightl y more so than previous but still benign appearance. No pleural effusion. In the opposite-left lung the small nodular density measuring 3-4 millimeters in the peripheral left upper lobe is unchanged. Pleural-based 2 millimeter nodule laterally left upper lobe is unchanged. There is a 4 millimeter noncalcified nodule in the left lower lobe (series 2/image 30) which was not previously evident. No other significant focal left lung findings and no pleural effusion. There are no new findings in the trachea and mainstem bronchi. MEDIASTINUM: There is no obvious hilar nor mediastinal adenopathy. Visualized thyroid unremarkable.No obvious axillary adenopathy CARDIAC: Heart size normal. No coronary artery calcification evident. No pericardial effusion.Calib er of the thoracic aorta is within normal limits. VISUALIZED UPPER ABDOMEN:There is a nodule in the left adrenal gland which measures 1.8 x 1.4 cm diff icult to compared to the previous due to differences in technique. The opposite-right adrenal gland appears unremarkable. OSSEOUS: No significant osseous lesions.. IMPRESSION: 1. One compared to the prior outside CT scan of 06/19/2020 most of the previously described small nod ules are stable. However, there does appear to be one new 4 millimeter noncalcified nodule in the le ft lower lobe (series 2/image 30). There are no pleural effusions. There is no new lymphadenopathy evident, realized limitations of a noninfused low-dose study. 2. There is a an 18 x 14 millimeter hypodense nodule in left adrenal gland. Difficult to determine i f this was previously present due to differences in exposure technique. 3. Recommend repeat CT scan in 6 months, earlier if clinically indicated. RADIATION DOSE DELIVERED: 510.33mGy.cm Total DLP DATA REPOSITORY: All CT scans at this facility are submitted to the National Radiology Data Registry (NRDR) Dose Index Registry (DIR) with the [employer] ([employer]). RADIATION OPTIMIZATION: All CT scans at this facility use at least one of these dose optimization te chniques: automated exposure control; mA and/or kV adjustment per patient size (includes targeted exa ms where dose is matched to clinical indication); or iterative reconstruction.
== END 2021-01-09 02:36 ==
PROVIDERS: PCP Family Medicine; Visit Provider Student in an Organized Health Care Education/Training Program
DX: R91.1 Solitary pulmonary nodule (principal); R91.8 Other nonspecific abnormal finding of lung field; E27.8 Other specified disorders of adrenal gland
CPT/HCPCS: 71250

== ENCOUNTER 2021-07-09 02:00 | Outpatient (CLI) | payer MEDICAID, SELFPAY ==
--- NOTE | 2021-07-09 07:00 | DI.CT_ITS ---
Exam(s) CT CHEST WO EXAM: CT CHEST WO CLINICAL HISTORY: F/U LLL PULMONARY NODULE, R91.1. TECHNIQUE: Imaging protocol: Axial computed tomography images were obtained and coronal and sagittal reformatted images were created and reviewed. COMPARISON: CT HEAD WITH/WITHOUT CONTRAST from 03/03/[address] CHEST LOW DOSE FOLLOW UP from 06/19/[address] CHEST WO from 01/09/2021 FINDINGS: Tracheobronchial tree: Patent where visualized. Pulmonary parenchyma: No consolidation or dominant measurable mass. Moderate centrilobular emphysemat ous changes are present. There has been no change change in the pulmonary nodules previously noted. No new pulmonary nodules are present. Mediastinum and Danni: No dominant adenopathy or fluid collection. The esophagus is unremarkable. Thyroid gland: Unremarkable. Pleura: No effusion or pneumothorax. Heart: The heart is not dilated. Mild coronary artery calcification. No pericardial effusion. Aorta: Thoracic aorta non-dilated. Atherosclerosis. Upper abdomen: Cholelithiasis. There is a stable left adrenal nodule. Lymph nodes: Within normal limits. Soft tissues: Unremarkable. Bones:Within normal limits for the patient's age. IMPRESSION: 1. Stable pulmonary nodules. 2. A follow-up CT scan in 12 months is recommended for re-evaluation. RADIATION DOSE DELIVERED: 438.45mGy.cm Total DLP 438.45mGy.cm Total DLP DATA REPOSITORY: All CT scans at this facility are submitted to the National Radiology Data Registry (NRDR) Dose Index Registry (DIR) with the [employer] ([employer]). RADIATION OPTIMIZATION: All CT scans at this facility use at least one of these dose optimization te chniques: automated exposure control; mA and/or kV adjustment per patient size (includes targeted exa ms where dose is matched to clinical indication); or iterative reconstruction.
== END 2021-07-09 02:20 ==
PROVIDERS: PCP Family Medicine; Visit Provider Student in an Organized Health Care Education/Training Program
DX: R91.1 Solitary pulmonary nodule (principal); J43.2 Centrilobular emphysema; R91.8 Other nonspecific abnormal finding of lung field
CPT/HCPCS: 71250

== ENCOUNTER → 2021-08-15 18:46 | Outpatient (CLI) | payer MEDICAID, SELFPAY ==
--- NOTE | 2021-08-15 | DI.RAD_ITS ---
Exam(s) XR TIB/FIB RT EXAM: XR TIB/FIB RT CLINICAL HISTORY: RT LEG PAIN - M79.604. TECHNIQUE: 2D digital imaging was performed. COMPARISON: No exams were available for comparison FINDINGS: Two views There is no evidence of fracture. No osseous lesions nor radiopaque foreign body. IMPRESSION: No fracture evident. DATA REPOSITORY: RADIATION DOSE DELIVERED:
--- NOTE | 2021-08-15 | DI.RAD_ITS ---
Exam(s) XR ANKLE RT COMPLETE EXAM: XR ANKLE RT COMPLETE CLINICAL HISTORY: RT ANKLE PAIN-M25.571. TECHNIQUE: 2D digital imaging was performed. COMPARISON: No exams were available for comparison FINDINGS: 3 views There is soft tissue swelling laterally but no evidence of fracture nor widening of the ankle mortise . Talar dome appears unremarkable. Bone density normal. No degenerative changes. No osteochondral defects. IMPRESSION: Soft tissue swelling but no fracture evident DATA REPOSITORY: RADIATION DOSE DELIVERED:
--- NOTE | 2021-08-15 | DI.RAD_ITS ---
Exam(s) XR FOOT RT COMPLETE EXAM: XR FOOT RT COMPLETE CLINICAL HISTORY: RT FOOT PAIN - M79.671. TECHNIQUE: 2D digital imaging was performed. COMPARISON: CR,XR XR FOOT LT COMPLETE from 06/09/2020 FINDINGS: 3 views There is no evidence of fracture nor diastasis of the Lisfranc joint. No radiopaque foreign body. Bone density is normal. No osseous lesions. IMPRESSION: No foot fracture evident. DATA REPOSITORY: RADIATION DOSE DELIVERED:
== END ==
PROVIDERS: PCP Family Medicine; Visit Provider Physician Assistant Medical
DX: M79.604 Pain in right leg (principal); M79.671 Pain in right foot; M25.571 Pain in right ankle and joints of right foot; M79.89 Other specified soft tissue disorders
CPT/HCPCS: 73590; 73610; 73630

== ENCOUNTER 2022-02-11 11:00 | Outpatient (REF) | payer MEDICAID, SELFPAY ==
[2022-02-12 12:54] LABS: C Diff PCR Negative (Negative)
== END 2022-02-11 11:01 | disposition home or self-care (01) ==
LOC: NCHCN 11:00
PROVIDERS: PCP Family Medicine; Visit Provider Nurse Practitioner Family
DX: R19.7 Diarrhea, unspecified (principal)
CPT/HCPCS: 87493

== ENCOUNTER 2022-05-02 13:41 | Outpatient (REF) | payer MEDICAID, SELFPAY ==
[2022-05-02 14:04] LABS: HCT 46.7 % (36.0-46.0); HGB 14.9 g/dL (11.2-15.7); MCH 27.6 pg (27.0-33.0); MCHC 31.9 % (32.0-36.0); MCV 87 fL (80-95); MPV 10.8 fL (8.0-11.0); Platelet Count 290 10^3/uL (130-400); RBC 5.39 10^6/uL (3.93-5.22); WBC 8.69 10^3/uL (4.4-10.8)
[2022-05-02 14:27] LABS: COMMENT (LAB VIEW ONLY) 198.29 mg/dL
[2022-05-02 14:40] LABS: ALT 36 U/L (14-59); AST 30 U/L (15-37); Albumin 3.7 g/dL (3.4-5.0); Alkaline Phosphatase 133 U/L (46-116); Anion Gap 5.7 mmol/L (3-11); BUN 10 mg/dL (7-18); Bilirubin, Total 0.4 mg/dL (0.2-1.0); CO2 30.3 mmol/L (21.0-32.0); CREATININE 0.7 mg/dL (0.55-1.02); Calcium 9.2 mg/dL (8.5-10.1); Calculated LDL 80 mg/dL (<100); Chloride 106 mmol/L (98-107); Cholesterol 156 mg/dL (<200); Estimated GFR 100.81 (mL/min/1.73m2); Glucose 122 mg/dL (74-106); HDL Cholesterol 59 mg/dL (40-60); Potassium 3.7 mmol/L (3.5-5.1); Sodium 142 mmol/L (136-145); TSH (W/Ref FT4) 1.44 uIU/mL (0.36-3.74); Total Protein 7.1 g/dL (6.4-8.2); Triglyceride 89 mg/dL (<150)
== END 2022-05-02 13:42 | disposition home or self-care (01) ==
LOC: NCHCN 13:41
PROVIDERS: PCP Family Medicine; Visit Provider Family Medicine
DX: E11.9 Type 2 diabetes mellitus without complications (principal); I10 Essential (primary) hypertension; E78.5 Hyperlipidemia, unspecified; F41.9 Anxiety disorder, unspecified
CPT/HCPCS: 80053; 80061; 85027; 82043; 82570; 84443

== ENCOUNTER 2022-05-27 12:16 | Outpatient (CLI) | payer MEDICAID, SELFPAY ==
--- NOTE | 2022-05-27 08:00 | DI.CTLCSR_ITS ---
Exam(s) CT CHEST LUNG CANCER SCREEN EXAM: CT CHEST LUNG CANCER SCREEN CLINICAL HISTORY: Screening for lung cancer, former smoker, pulmonary nodule, R91.1 TECHNIQUE: Imaging Protocol: Axial computed tomography images with coronal and sagittal reformatted images were created and reviewed. Low dose screening protocol. COMPARISON: CT HEAD WITH/WITHOUT CONTRAST from 03/03/[address] CHEST LOW DOSE FOLLOW UP from 06/19/[address] CHEST WO from 01/09/[address] CHEST WO from 07/09/2021 FINDINGS: Tracheobronchial tree: No bronchiectasis or mucus plugging.. Mediastinum and Danni: No dominant adenopathy or fluid collection. Pulmonary parenchyma: There are now multiple scattered bilateral areas of ground-glass nodules not no sophy on prior exams. Findings have not of inflammatory appearance. There is a solid-appearing nodule i n the left lower lobe measuring 11 x 9 millimeters. Other tiny nodules less than 5 millimeters are no sophy. Moderate emphysematous changes in the upper lobes mild lower lobes.. Pleura: No effusion. No pneumothorax. Heart: The heart is not dilated. No coronary artery calcifications are seen. Aorta: Thoracic aorta non-dilated. Upper abdomen: Stable low-density lesion of left adrenal gland, consistent with an adenoma. Bones: Unremarkable for age. Soft Tissues: Unremarkable. IMPRESSION: Multiple foci nodular infiltrates in both upper and lower lobes, greater in the upper lobes has an in flammatory appearance. More solid-appearing nodule measuring 11 x 9 millimeters is noted in the left lower lobe. Three-month CT recommended. Lung RADS Cat 4A - Suspicious: Findings for which additional diagnostic testing and/or tissue samplin g recommended Lung-RADS 1.0 CATEGORIES: Category 0 - Prior chest CT exam(s) being located for comparison. Category 1 - Annual screening in 12 months. No nodules or definitely benign nodules. Category 2 - Annual screening in 12 months. Benign appearance. Nodules with low likelihood of becomin g active cancer. Category 3 - 6-month follow-up. Probably benign. Short-term follow-up suggested. Nodules with low lik elihood of becoming active cancer. Category 4A - 3-month follow-up and CT/PET if >8 mm in size. Suspicious finding. Findings which requi re additional testing. Category 4B - Findings which require additional testing and tissue sampling. Category 4X - Category 3 or 4 nodules with additional features or imaging findings that increases the suspicion of malignancy. Modifier S- Potentially clinically significant findings (non lung cancer) RADIATION DOSE DELIVERED: 76.62mGy.cm Total DLP DATA REPOSITORY: All CT scans at this facility are submitted to the National Radiology Data Registry (NRDR) Dose Index Registry (DIR) with the [employer] ([employer]). RADIATION OPTIMIZATION: All CT scans at this facility use at least one of these dose optimization te chniques: automated exposure control; mA and/or kV adjustment per patient size (includes targeted exa ms where dose is matched to clinical indication); or iterative reconstruction.
== END 2022-05-27 12:36 ==
LOC: DI 12:17
PROVIDERS: PCP Family Medicine; Visit Provider Physician Assistant Surgical
DX: R91.1 Solitary pulmonary nodule (principal); Z12.2 Encounter for screening for malignant neoplasm of respiratory organs; Z87.891 Personal history of nicotine dependence; J43.8 Other emphysema; J98.4 Other disorders of lung
CPT/HCPCS: 71271

== ENCOUNTER 2022-11-14 18:29 | Outpatient (REF) | payer MEDICAID, SELFPAY ==
[2022-11-14 15:08] LABS: HCT 44.4 % (36.0-46.0); HGB 14.8 g/dL (11.2-15.7); MCHC 33.3 % (32.0-36.0); MCV 87 fL (80-95); MPV 11.1 fL (8.0-11.0); Platelet Count 317 10^3/uL (130-400); RBC 5.11 10^6/uL (3.93-5.22); RDW 14.4 % (11.7-14.6); RDW-SD 46.1 fL
[2022-11-14 15:13] LABS: BUN 14 mg/dL (7-18); CREATININE 0.8 mg/dL (0.55-1.02); Chloride 105 mmol/L (98-107); Estimated GFR 85.35 (mL/min/1.73m2); Glucose 172 mg/dL (74-106); Potassium 4.5 mmol/L (3.5-5.1); Sodium 140 mmol/L (136-145)
[2022-11-14 16:37] LABS: COMMENT (LAB VIEW ONLY) 116.12 mg/dL; Microalb ug/mg Crea 17.1 ug/mg Cr
== END 2022-11-14 18:30 | disposition home or self-care (01) ==
LOC: NCHCN 18:29
PROVIDERS: PCP Family Medicine; Visit Provider Family Medicine
DX: E11.9 Type 2 diabetes mellitus without complications (principal); I10 Essential (primary) hypertension; D68.9 Coagulation defect, unspecified; R35.0 Frequency of micturition
CPT/HCPCS: 80048; 85027; 82043; 82570

== ENCOUNTER 2023-11-11 09:04 | Outpatient (REF) | payer MEDICAID, SELFPAY ==
[2023-11-11 15:35] LABS: COMMENT (LAB VIEW ONLY) 129.02 mg/dL; Microalb ug/mg Crea 22.4 ug/mg Cr
== END 2023-11-11 09:05 | disposition home or self-care (01) ==
LOC: NCHCN 09:04
PROVIDERS: PCP Family Medicine; Visit Provider Physician Assistant
DX: R73.9 Hyperglycemia, unspecified (principal)
CPT/HCPCS: 82043; 82570

== ENCOUNTER 2024-09-29 12:07 | Outpatient (REF) | payer MEDICAID, SELFPAY ==
[2024-09-29 16:37] LABS: Hemoglobin A1C 6.9 % (<5.7)
[2024-09-29 16:39] LABS: Anion Gap 11.0 mmol/L (3-11); BUN 14 mg/dL (7-18); CO2 25.0 mmol/L (21.0-32.0); Calcium 8.9 mg/dL (8.5-10.1); Chloride 106 mmol/L (98-107); Estimated GFR 99.57 (mL/min/1.73m2); Glucose 145 mg/dL (74-106); Potassium 3.4 mmol/L (3.5-5.1); Sodium 142 mmol/L (136-145); TSH (W/Ref FT4) 1.35 uIU/mL (0.36-3.74)
== END 2024-09-29 12:08 | disposition home or self-care (01) ==
LOC: NCHCN 12:07
PROVIDERS: PCP Family Medicine; Visit Provider Family Medicine
DX: E11.9 Type 2 diabetes mellitus without complications (principal); Z01.818 Encounter for other preprocedural examination; R53.83 Other fatigue
CPT/HCPCS: 80048; 83036; 84443

== ENCOUNTER 2024-10-03 15:32 | Outpatient (REF) | payer MEDICAID, SELFPAY ==
[2024-10-03 09:43] LABS: Glucose 100 mg/dL (Negative)
[2024-10-03 10:25] LABS: C & S Indicated? No; RBC 0-2 HPF (0-2); WBC Negative HPF (0-5)
[2024-10-03 10:34] LABS: ALT 31 U/L (14-59); AST 17 U/L (15-37); Albumin 3.7 g/dL (3.4-5.0); Alkaline Phosphatase 126 U/L (46-116); Anion Gap 9.7 mmol/L (3-11); BUN 16 mg/dL (7-18); Bilirubin, Total 0.4 mg/dL (0.2-1.0); CO2 26.3 mmol/L (21.0-32.0); Calcium 9.3 mg/dL (8.5-10.1); Chloride 107 mmol/L (98-107); Estimated GFR 84.82 (mL/min/1.73m2); Glucose 147 mg/dL (74-106); Potassium 4.0 mmol/L (3.5-5.1); Sodium 143 mmol/L (136-145); Total Protein 6.5 g/dL (6.4-8.2)
== END 2024-10-03 15:33 | disposition home or self-care (01) ==
LOC: LBN 15:32
PROVIDERS: PCP Family Medicine; Visit Provider Internal Medicine Pulmonary Disease
DX: D86.0 Sarcoidosis of lung (principal)
CPT/HCPCS: 80053; 81003; 81015

== ENCOUNTER → 2025-02-17 00:28 | Outpatient (CLI) | payer MEDICAID, SELFPAY ==
--- NOTE | 2025-02-17 | DI.CT_ITS ---
Exam(s) CT HEAD WO EXAM: CT HEAD WO CLINICAL HISTORY: S09.90XA Injury of head, initial encounter. TECHNIQUE: Imaging Protocol: Axial computed tomography images with coronal and sagittal reformatted images were created and reviewed COMPARISON: MR MRI - BRAIN WO CONTRAST from 05/16/2014 FINDINGS: There are no skull fractures. There is no fluid in the visualized paranasal sinuses. There is no evidence of intracranial hemorrhage. There are areas of abnormal hypodensity-encephalomalacia in the left parietal and left frontoparietal lobes. There is also mild hypodensity in the white matter adjacent the anterior horn of the right frontal lobe. There is no evidence of frontal lobe contusions. IMPRESSION: Areas of encephalomalacia in the left parietal and left frontoparietal regions. No evidence of acute hemorrhage. RADIATION DOSE DELIVERED: 919.11mGy.cm Total DLP DATA REPOSITORY: All CT scans at this facility are submitted to the National Radiology Data Registry (NRDR) Dose Index Registry (DIR) with the [employer] ([employer]). RADIATION OPTIMIZATION: All CT scans at this facility use at least one of these dose optimization techniques: automated exposure control; mA and/or kV adjustment per patient size (includes targeted exams where dose is matched to clinical indication); or iterative reconstruction.
== END ==
PROVIDERS: PCP Family Medicine; Visit Provider Nurse Practitioner Family
DX: S09.90XA Unspecified injury of head, initial encounter (principal)
CPT/HCPCS: 70450